=== PATIENT | male | born 1985 | race Caucasian/White ===

== ENCOUNTER → 2018-02-02 | Outpatient (REF) | payer BC | LOC: M LAB REF 19:19 | DX: J06.9 Acute upper respiratory infection, unspecified (principal) ==

== ENCOUNTER 2018-08-21 10:27 | Emergency (ER) | payer SELFPAY ==
[~2018-08-21] VITALS: Ht 185.4 cm; Wt 84.1 kg
[2018-08-21 10:27] VITALS: BP 133/94
== END 2018-08-21 11:04 | disposition left against medical advice (07) ==
LOC: M ED 10:27
DX: Z53.21 Procedure and treatment not carried out due to patient leaving prior to being seen by health care provider (principal)

== ENCOUNTER 2023-10-05 14:30 | Emergency (ER) | payer MEDICAID ==
[~2023-10-05] VITALS: Ht 185.4 cm; Wt 92.6 kg
[~2023-10-05 14:30] MED LIST: IBUP80TA PO
[2023-10-05 14:31] VITALS: BP 169/89; TEMP 97.7; O2SAT 97
[2023-10-05] MEDS: KETOROLAC 30 MG/ML 1ML VIAL IV ONE (15:46)
[2023-10-05 15:55] LABS: BASO % 0.5 % (0.0-1.0); EOS # 0.1 10^3/uL (0.0-0.5); EOS % 0.9 % (0.0-3.0); HEMATOCRIT 43.6 % (42.0-52.0); HEMOGLOBIN 14.7 g/dl (13.5-17.5); LYMPH # 1.8 10^3/uL (1.5-5.0); LYMPH % 23.1 % (24.0-44.0); MEAN CORPUSCULAR HEMOGLOBIN 30.5 pg (27.0-33.0); MEAN CORPUSCULAR HGB CONC 33.7 g/dl (32.0-36.5); MEAN CORPUSCULAR VOLUME 90.5 fl (80.0-96.0); MONO # 0.7 10^3/uL (0.0-0.8); MONO % 8.9 % (2.0-8.0); NEUTROPHILS # 5.1 10^3/uL (1.5-8.5); NEUTROPHILS % 66.3 % (36.0-66.0); PLATELET COUNT, AUTOMATED 285 10^3/uL (150-450); RED BLOOD COUNT 4.82 10^6/uL (4.30-6.10); WHITE BLOOD COUNT 7.6 10^3/uL (4.0-10.0)
[2023-10-05 16:09] LABS: ERYTHROCYTE SEDIMENTATION RATE 20 mm/hr (0-15)
[2023-10-05 16:21] LABS: ALBUMIN 3.4 G/DL (3.2-5.2); ALKALINE PHOSPHATASE 79 U/L (46-116); ALT/SGPT 17 U/L (7.0-40); AST/SGOT 10 U/L (<34); BILIRUBIN,DIRECT 0.2 MG/DL (<0.4); BILIRUBIN,TOTAL 0.7 MG/DL (0.3-1.2); BLOOD UREA NITROGEN 13 MG/DL (9-23); CALCIUM LEVEL 8.2 MG/DL (8.5-10.1); CARBON DIOXIDE LEVEL 29 MMOL/L (20-31); CHLORIDE LEVEL 111 MMOL/L (98-107); CREATININE FOR GFR 0.93 MG/DL (0.70-1.30); GLOMERULAR FILTRATION RATE > 60.0 (>60); GLUCOSE, FASTING 96 MG/DL (60-100); POTASSIUM SERUM 3.9 MMOL/L (3.5-5.1); SODIUM LEVEL 144 MMOL/L (136-145); TOTAL PROTEIN 6.4 G/DL (5.7-8.2)
== END 2023-10-05 17:35 | disposition left against medical advice (07) ==
LOC: M ED 14:30
DX: M70.21 Olecranon bursitis, right elbow (principal); J45.909 Unspecified asthma, uncomplicated; F32.A Depression, unspecified; Z88.0 Allergy status to penicillin; Z79.1 Long term (current) use of non-steroidal anti-inflammatories (NSAID); Z53.9 Procedure and treatment not carried out, unspecified reason
CPT/HCPCS: 73080; 76882; 80048; 80076; 85025; 85652; 86140; 87040; 96374; 99283; J1885

== ENCOUNTER 2024-07-17 00:18 | Emergency (ER) | payer OTHER ==
[~2024-07-17] VITALS: Ht 185.4 cm; Wt 100.0 kg
[2024-07-17] MEDS: ASPIRIN 81MG CHEW TABLET PO ONE (01:19)
[2024-07-17] MEDS: NITROGLYCERIN 0.4MG SUBL TABLET SL PRN (01:20)
[2024-07-17 01:24] LABS: BASO % 0.7 % (0.0-1.0); EOS # 0.2 10^3/uL (0.0-0.5); EOS % 2.7 % (0.0-3.0); HEMATOCRIT 45.2 % (42.0-52.0); HEMOGLOBIN 15.2 g/dl (13.5-17.5); LYMPH # 1.9 10^3/uL (1.5-5.0); LYMPH % 32.3 % (24.0-44.0); MEAN CORPUSCULAR HEMOGLOBIN 30.5 pg (27.0-33.0); MEAN CORPUSCULAR HGB CONC 33.6 g/dl (32.0-36.5); MEAN CORPUSCULAR VOLUME 90.6 fl (80.0-96.0); MONO # 0.7 10^3/uL (0.0-0.8); MONO % 11.6 % (2.0-8.0); NEUTROPHILS # 3.2 10^3/uL (1.5-8.5); NEUTROPHILS % 52.5 % (36.0-66.0); PLATELET COUNT, AUTOMATED 211 10^3/uL (150-450); RED BLOOD COUNT 4.99 10^6/uL (4.30-6.10)
[2024-07-17 01:34] VITALS: BP 141/101
[2024-07-17] MEDS: LABETALOL 100MG/20ML VIAL IV STA (01:34)
[2024-07-17 01:36] LABS: INR 0.89; PROTHROMBIN TIME 12.3 SECONDS (12.5-14.5)
[2024-07-17 01:48] LABS: LIPASE 154 U/L (12-53)
[2024-07-17 01:50] LABS: ALBUMIN 3.4 G/DL (3.2-5.2); ALKALINE PHOSPHATASE 72 U/L (40-129); ALT/SGPT 23 U/L (7.0-40); AST/SGOT 18 U/L (<34); BILIRUBIN,DIRECT 0.2 MG/DL (<0.4); BILIRUBIN,TOTAL 0.7 MG/DL (0.3-1.2); BLOOD UREA NITROGEN 13 MG/DL (9-23); CALCIUM LEVEL 8.5 MG/DL (8.5-10.1); CARBON DIOXIDE LEVEL 28 MMOL/L (20-31); CHLORIDE LEVEL 106 MMOL/L (98-107); CK-MB VALUE MASS < 1.0 NG/ML (<3.6); CREATININE FOR GFR 0.83 MG/DL (0.70-1.30); GLOMERULAR FILTRATION RATE > 60.0 (>60); GLUCOSE, FASTING 89 MG/DL (60-100); POTASSIUM SERUM 3.6 MMOL/L (3.5-5.1); SODIUM LEVEL 142 MMOL/L (136-145); TOTAL PROTEIN 6.6 G/DL (5.7-8.2)
[2024-07-17 01:52] LABS: CPK CREATINE PHOSPHOKINASE 62 U/L (46-171); MB/CK RELATIVE INDEX 1.61 (< OR =4)
[2024-07-17] MEDS ORDERED: ISOVUE-370 76% 100ML VIAL As Ordered ONE (03:15)
[2024-07-17 04:00] LABS: CK-MB VALUE MASS < 1.0 NG/ML (<3.6)
[2024-07-17 04:01] LABS: CPK CREATINE PHOSPHOKINASE 56 U/L (46-171); MB/CK RELATIVE INDEX 1.78 (< OR =4)
[2024-07-17] MEDS: CHLORTHALIDONE 25 MG TAB PO ONE (04:22)
[2024-07-17 04:45] VITALS: TEMP 97.4
[2024-07-17 05:15] VITALS: BP 149/97; O2SAT 98
[2024-07-17] MEDS ORDERED: CHLO125TA PO (05:21)
[2024-07-17] MEDS ORDERED: CLONI1TA PO (05:21)
[2024-07-17] MEDS ORDERED: NORV5TAB PO (05:21)
== END 2024-07-17 05:35 | disposition home or self-care (01) ==
LOC: M ED 00:18
DX: I16.0 Hypertensive urgency (principal); F17.210 Nicotine dependence, cigarettes, uncomplicated; F15.10 Other stimulant abuse, uncomplicated; Z88.0 Allergy status to penicillin; Z79.1 Long term (current) use of non-steroidal anti-inflammatories (NSAID); Z79.899 Other long term (current) drug therapy
CPT/HCPCS: 36415; 71045; 71275; 80048; 80076; 82550; 82553; 83690; 84484; 85025; 85610; 93005; 93041; 94760; 99285; Q9967

== ENCOUNTER → 2025-04-05 | Outpatient (CLI) | payer OTHER ==
[~2025-04-05] MED LIST changes: +CHLO125TA PO; +CLONI1TA PO; +NORV5TAB PO
== END ==
LOC: M SOG 08:00
PROVIDERS: ATTEND Orthopaedic Surgery
DX: M25.562 Pain in left knee (principal)